=== PATIENT | female | born 1995 | race Caucasian/White ===

== ENCOUNTER 2023-06-18 08:49 | Outpatient (CLI) | payer BC, SELFPAY ==
--- NOTE | 2023-06-18 09:15 | CRLHL7_ITS ---
For Patients: As a result of the Century Cures Act, medical imaging exams and procedure reports are released immediately into your electronic medical record. You may view this report before your referring provider. If you have questions, please contact your health care provider. Indication: FEMALE INFERTILITY Technique: Hysterosalpingogram. Fluoroscopic time 46 seconds. IMPRESSION: Normal patency of the fallopian tubes. No filling defect within the endometrial canal. Normal exam. Dictated by Irineo Emery MD @ 06/18/2023 11:07:13 AM (Electronically Signed)
--- NOTE | 2023-06-18 11:15 | W.PM.GYNPROC ---
Procedure Note Date of procedure: 06/18/23 Procedure Description: PREPROCEDURE DIAGNOSIS: Secondary infertility. POSTPROCEDURE DIAGNOSIS: 1. Secondary infertility. 2. Patent fallopian tubes bilaterally. NAME OF PROCEDURE: Hysterosalpingogram. ANESTHESIA: None. COMPLICATIONS: None. PROCEDURE: After obtaining verbal consent, the patient was placed in the dorsal lithotomy position on the x-ray table. An open-sided bivalve speculum was introduced into the vagina and the cervix easily visualized. The cervix and vagina were then prepped with Betadine. The anterior lip of the cervix was grasped with a single-tooth tenaculum for traction. Initial attempts to pass the balloon-tipped catheter through the cervix into the lower uterine segment were unsuccessful. Cervix was dilated with os finder, then with Hegar dilators, revealing a retroverted uterus. A balloon tipped double-lumen catheter was then gently inserted through the cervical opening into the uterine cavity to the level of the fundus. The balloon was insufflated with 2.5 mL of air. The speculum was removed. The patient was repositioned in the supine position, covered, and the radiologist was called to the room. A hysterosalpingogram was then performed. A total of approximately 4 cc of Optiray 300 water soluble contrast dye was injected through the double-lumen catheter under moderate pressure. There was immediate fill of the uterine cavity to the cornua and immediate fill of both fallopian tubes and free spillage of dye on both sides. The balloon was deflated and the endometrial cavity showed a normal appearance. The catheter was removed. The tenaculum was removed and hemostasis noted. The patient tolerated the procedure well, though she did struggle with anxiety and took Valium prior to procedure. She was discharged to home in stable condition and to follow [facility].
== END 2023-06-18 08:50 | disposition home or self-care (01) ==
LOC: RAD 08:50
PROVIDERS: Visit Provider Obstetrics & Gynecology
DX: N97.9 Female infertility, unspecified (principal)
CPT/HCPCS: 58340; 74740; A4649; Q9967